=== PATIENT | male | born 1955 | race Two or more races ===

== ENCOUNTER 2018-01-26 12:12 | Emergency (ER) | payer OTHER ==
[2018-01-26 12:22] VITALS: Ht 165.1 cm
[2018-01-26 15:52] LABS: BASOPHIL % 0.7 % (0-2); RED CELL DISTRIBUTION WIDTH 12.5 % (11.5-14.5)
[2018-01-26 15:58] LABS: CALCIUM 9.4 mg/dL (8.5-10.1); CARBON DIOXIDE 29.2 mmol/L (21-32); CHLORIDE SERUM 94 mmol/L (98-107); CREATININE SERUM 0.9 mg/dL (0.7-1.3); GFR1 > 60 mL/min; GLUCOSE SERUM 112 mg/dL (74-106); POTASSIUM SERUM 4.2 mmol/L (3.5-5.1); SODIUM SERUM 131 mmol/L (136-145)
[2018-01-26 15:59] LABS: PLATELET COUNT 426 x10^3mcL (130-400)
[2018-01-26 16:05] LABS: ALKALINE PHOSPHATASE 11 U/L (46-116); ALT/SGPT 128 U/L (16-63); AST/SGOT 98 U/L (15-37); BILIRUBIN TOTAL 0.6 mg/dL (0.20-1.00); CHOLESTEROL 143 mg/dL (<200); TRIGLYCERIDES 75 mg/dL (<150)
[2018-01-26 16:06] LABS: ALBUMIN 2.8 g/dL (3.4-5.0); CHOLESTEROL/HDL RATIO 4.8; HDL CHOLESTEROL 30 mg/dL (40-60); TOTAL PROTEIN, SERUM 8.7 g/dL (6.4-8.2)
[2018-01-26 17:09] VITALS: BP 115/61
== END 2018-01-26 17:09 | disposition home or self-care (01) ==
LOC: ED 12:12
PROVIDERS: Emergency Medicine
DX: M25.50 Pain in unspecified joint (principal); I10 Essential (primary) hypertension; E11.9 Type 2 diabetes mellitus without complications; E78.5 Hyperlipidemia, unspecified
CPT/HCPCS: 36415; 82962